=== PATIENT | female | born 1985 | race Caucasian/White ===

== ENCOUNTER 2021-03-03 22:24 | Emergency (ER) | payer BC ==
[~2021-03-03] VITALS: Ht 167.6 cm; Wt 86.0 kg
[2021-03-03] MEDS ORDERED: IV RINGERS SOLUTION,LACTATED 1,000 ML IV ONE (22:45)
[2021-03-03] MEDS ORDERED: ADENOSINE 6 MG/2 ML VIAL IV ONE ×2 (22:45→23:00)
--- NOTE | 2021-03-03 22:54 | PHYS DOC ---
Adult General Chief Complaint Chief Complaint: Palpitations HPI HPI Patient is a 36-year-old female with a past medical history significant for SVT who presents with heart palpitations that started just before coming in the emergency department. States she had not had this happen for a long time. Denies any recent traumas, illnesses, fevers, abdominal pain, nausea, vomiting, dysuria, hematuria, blood in the stool or diarrhea. States she is having some generalized chest discomfort and shortness of breath since this started. Denies any alcohol or drug use. States she just finished her menstrual cycle. States she did start a probiotic a week ago however but cannot remember the name and she got it at [facility]. Review of Systems Review of Systems Review of systems otherwise unremarkable except noted in HPI Current Medications Current Medications Current Medications Medications (Trade) Dose Ordered Sig/Mirian Start Time Stop Time Status Last Admin Dose Admin Adenosine (Adenocard) 6 mg 1X ONCE 03/03/21 22:45 03/03/21 22:46 UNV Lactated Ringer's 1,000 ml @ 100 mls/hr 1X ONCE 03/03/21 22:45 03/04/21 08:44 UNV Allergies Allergies Allergies Coded Allergies Type Severity Reaction Last Updated Verified No Known Drug Allergies 03/03/21 No Physical Exam Physical Exam Constitutional: Well developed, well nourished, in mild distress, non-toxic appearance. [] HENT: Normocephalic, atraumatic, bilateral external ears normal, oropharynx moist, no oral exudates, nose normal. [] Eyes: PERRLA, EOMI, conjunctiva normal, no discharge. [] Neck: Normal range of motion, no tenderness, supple, no stridor. [] Cardiovascular: SVT to 240, no murmurs appreciated Lungs & Thorax: Bilateral breath sounds clear to auscultation [] Abdomen: soft, no tenderness, no masses, no pulsatile masses. [] Skin: Warm, dry, no erythema, no rash. [] Back: no CVA tenderness. [] Extremities: No tenderness, ROM intact, no edema. [] Neurologic: Alert and oriented X 3, no focal deficits noted. [] Psychologic: Affect normal, judgement normal, mood normal. [] EKG EKG [] Radiology/Procedures Radiology/Procedures [] Heart Score C/O Chest Pain: Yes HEART Score for Chest Pain: HEART Score for Chest Pain Response (Comments) Value History Slighlty/Non-Suspicious 0 ECG Nonspecific Repolarizatio 1 Age < 45 0 Troponin < Normal Limit 0 Total 1 Risk Factors: Risk Factors: DM, Current or recent (<one month) smoker, HTN, HLP, family history of CAD, obesity. Risk Scores: Risk Factors: DM, Current or recent (<one month) smoker, HTN, HLP, family history of CAD, obesity. Course & Med Decision Making Course & Med Decision Making Patient is a 36-year-old female presents the emergency department with a chief complaint of palpitations, lightheadedness and shortness of breath Vital signs notable for SVT to 240 otherwise unremarkable. Physical exam noted above. Patient placed on the monitor with IV access established x2, with cardiac pads in place. Given initial dose of 6 mg of adenosine with no effect. Given second dose of 12 with cardioversion to sinus rhythm at about 90. Patient symptoms resolved with chemical cardioversion. Laboratory analysis not concerning. Troponin normal. Urinalysis normal. Not . Vital signs normal and patient asymptomatic. Discussed all findings with family Advised to call primary care physician in the morning to update on ED visit and set up a follow-up as soon as possible to discuss further evaluation and treatment. Advised to come back to the emergency department immediately with new or concerning symptoms as discussed. [] Dragon Disclaimer Dragon Disclaimer This electronic medical record was generated, in whole or in part, using a voice recognition dictation system. Departure Departure: Impression: Primary Impression: SVT (supraventricular tachycardia) Disposition: HOME / SELF CARE / HOMELESS Condition: GOOD Referrals: DELICIA VICTORIA (PCP) Patient Instructions: Supraventricular Tachycardia Additional Instructions: Thank you for coming into the emergency department tonight and allowing us to take care of you. Please read all the attached information carefully to go back over things we discussed. As discussed, please cease taking the new probiotic that you begin just in case this has any impact on your SVT. Please hold tomorrow morning's dose of your levothyroxine until your TSH resolves or your primary care physician recommends that she begin taking it and. Please call your primary care physician first thing in the morning to discuss your ED visit and set up a follow-up as soon as possible, preferably tomorrow. Please come back to the ED immediately with new or concerning symptoms as we discussed. DUTCH LEON MD Mar 03, 2021 22:54
[2021-03-03 23:00] LABS: BASO # 0.1 x10^3/uL (0.0-0.2); BASO % 1 % (0-3); EOS # 0.1 x10^3/uL (0.0-0.7); EOS % 2 % (0-3); HEMATOCRIT 37.6 % (36.0-47.0); HEMOGLOBIN 12.1 g/dL (12.0-15.5); LYMPH # 4.2 x10^3/uL (1.0-4.8); LYMPH % 53 % (24-48); MEAN CORPUSCULAR HEMOGLOBIN 28 pg (25-35); MEAN CORPUSCULAR HGB CONC 32 g/dL (31-37); MEAN CORPUSCULAR VOLUME 86 fL (79-100); MONO # 0.9 x10^3/uL (0.0-1.1); MONO % 11 % (0-9); NEUT # 2.7 x10^3uL (1.8-7.7); NEUT % 33 % (31-73); PLATELET COUNT 233 x10^3/uL (140-400); RED BLOOD COUNT 4.38 x10^6/uL (3.50-5.40); RED CELL DISTRIBUTION WIDTH 16.5 % (11.5-14.5)
--- NOTE | 2021-03-03 23:04 | RAD ---
Exam: Chest one view INDICATION: SVT TECHNIQUE: Frontal view of the chest Comparisons: None FINDINGS: The cardiomediastinal silhouette and pulmonary vessels are within normal limits. The lung and pleural spaces are clear. IMPRESSION: No acute cardiopulmonary process. Electronically signed by: Kevin Nuno MD (03/03/2021 11:02 PM) LATOS[facility]
[2021-03-03 23:06] LABS: CALCIUM 8.7 mg/dL (8.5-10.1); GFR 62.4; POTASSIUM 4.5 mmol/L (3.5-5.1)
[2021-03-03] MEDS ORDERED: IV NORMAL SALINE 1,000ML 1,000 ML IV ONE (23:15)
--- NOTE | 2021-03-03 23:23 | EKG ---
[address] [address] Test Date: 2021-03-03 Test Time: 22:27:11 Pat Name: DODIE HUGO Department: Room: Gender: F Deputy Sheriff Generalist: : 1985 Requested By: DUTCH LEON Order Number: [id number] Reading MD: Measurements Intervals [place] Rate: 169 P: [place]: QRS: 66 QRSD: 80 T: -58 QT: 272 QTc: 461 Interpretive Statements SUPRAVENTRICULAR TACHYCARDIA ST & T ABNORMALITY, CONSIDER INFEROLATERAL ISCHEMIA OR LEFT VENTRICULAR STRAIN ABNORMAL ECG RI6.02 No previous ECG available for comparison
--- NOTE | 2021-03-03 23:25 | EKG ---
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
[2021-03-03 23:56] LABS: BACTERIA,URINE 0 /HPF (0-FEW); BILIRUBIN,URINE NEG (NEG); CLARITY,URINE CLEAR; COLOR,URINE YELLOW; GLUCOSE,URINE NEG (NEG); NITRITE,URINE NEG (NEG); RBC,URINE 0 /HPF (0-2); SQUAMOUS EPITHELIAL CELL,UR OCC /LPF; UROBILINOGEN,URINE 0.2 mg/dL (0.2 mg/dL); WBC,URINE OCC /HPF (0-4)
[2021-03-04 00:05] VITALS: BP 123/65
== END 2021-03-04 00:25 | disposition home or self-care (01) ==
LOC: ER 22:24
DX: I47.1 Supraventricular tachycardia (principal)
CPT/HCPCS: 36415; 71045; 80048; 81001; 81025; 83735; 84443; 84484; 85025; 93005; 96361; 96374; 99285; J0153; J7030; J7120